=== PATIENT | female | born 1995 | race African-American/Black ===

== ENCOUNTER → 2017-01-19 | Outpatient (REF) | payer OTHER | LOC: M SFHCLERA 19:23 | PROVIDERS: ATTEND Nurse Practitioner Family | DX: J06.9 Acute upper respiratory infection, unspecified (principal) ==

== ENCOUNTER → 2017-03-08 | Outpatient (REF) | payer OTHER ==
[2017-03-08 14:10] LABS: BASO % 0.5 % (0.0-1.0); EOS # 0.1 K/mm3 (0.0-0.50); EOS % 1.9 % (0.0-3.0); LARGE UNSTAINED CELL # 0.1 K/mm3 (0.0-0.4); LARGE UNSTAINED CELL % 1.8 % (0.0-4.0); LYMPH % 39.4 % (24.0-44.0); MEAN CORPUSCULAR HGB CONC 30.7 g/dl (32.0-36.5); MEAN CORPUSCULAR VOLUME 74.9 fl (80.0-96.0); MONO # 0.3 K/mm3 (0.0-0.8); MONO % 6.1 % (0.0-5.0); NEUTROPHILS # 2.5 K/mm3 (1.8-7.7); NEUTROPHILS % 50.3 % (36.0-66.0); PLATELET COUNT, AUTOMATED 515 k/mm3 (150-450); RED CELL DISTRIBUTION WIDTH 16.9 % (11.5-14.5)
[2017-03-08 14:41] LABS: ALBUMIN 4.1 GM/DL (3.2-5.2); ALBUMIN/GLOBULIN RATIO 1.05 (1.00-1.93); ALKALINE PHOSPHATASE 77 U/L (45-117); ALT/SGPT 16 U/L (12-78); ANION GAP 4 MEQ/L (8-16); AST/SGOT 12 U/L (15-37); BILIRUBIN,TOTAL 0.3 MG/DL (0.2-1.0); BLOOD UREA NITROGEN 9 MG/DL (7-18); CALCIUM LEVEL 9.1 MG/DL (8.5-10.1); CARBON DIOXIDE LEVEL 31 MEQ/L (21-32); CHLORIDE LEVEL 105 MEQ/L (98-107); CREATININE FOR GFR 0.79 MG/DL (0.55-1.02); GLOMERULAR FILTRATION RATE > 60.0 (>60); GLUCOSE, FASTING 94 MG/DL (70-105); POTASSIUM SERUM 4.6 MEQ/L (3.5-5.1); SODIUM LEVEL 140 MEQ/L (136-145)
[2017-03-08 14:49] LABS: VITAMIN B12 LEVEL 599 PG/ML (247-911)
[2017-03-08 14:50] LABS: FOLATE > 24.0 NG/ML (>5.4)
== END ==
LOC: M LABNEURO 13:03
PROVIDERS: ATTEND Psychiatry & Neurology Neurology
DX: G40.909 Epilepsy, unspecified, not intractable, without status epilepticus (principal)

== ENCOUNTER → 2018-02-06 | Outpatient (CLI) | payer OTHER | LOC: M LRY 17:45 | DX: M25.561 Pain in right knee (principal) | CPT/HCPCS: G0463 ==

== ENCOUNTER → 2018-10-07 | Outpatient (REF) | payer OTHER, MEDICAID | LOC: M SFHCLERA 18:15 | DX: J02.9 Acute pharyngitis, unspecified (principal) ==

== ENCOUNTER → 2018-10-07 | Outpatient (CLI) | payer OTHER, MEDICAID | LOC: M LRY 18:37 | DX: R05 Cough (principal) | CPT/HCPCS: 71046 ==

== ENCOUNTER 2024-12-29 07:14 | Outpatient (CLI) | payer OTHER, MEDICAID ==
[~2024-12-29] VITALS: Ht 154.9 cm; Wt 63.0 kg
[~2024-12-29 07:14] MED LIST: ALBUTEROL SULFATE 2.5MG/0.5ML INH NEB SOLN INH PRN; EPINEPHrine INJ 1 MG/ML 1ML AMP IM PRN; diphenhydrAMINE 50MG/ML VIAL IV PRN; methylPREDNISolone 125MG 2ML VIAL IV PRN
[2024-12-29 07:20] VITALS: BP 124/73; O2SAT 100
[2024-12-29] MEDS: FERRIC CARBOXYMALTOSE 750 MG (VIAL MATE) IN 100ML NS IV ONE (07:35)
[2024-12-29] MEDS ORDERED: KEPP1TAB2 PO (07:43)
[2024-12-29 08:30] VITALS: BP 122/72; O2SAT 100
== END 2024-12-29 08:30 ==
LOC: M INFU 07:14
PROVIDERS: ATTEND Internal Medicine
DX: D50.9 Iron deficiency anemia, unspecified (principal)
CPT/HCPCS: 96365; J1439

== ENCOUNTER 2025-01-05 12:34 | Outpatient (CLI) | payer OTHER, MEDICAID ==
[~2025-01-05] VITALS: Ht 154.9 cm; Wt 63.2 kg
[~2025-01-05 12:34] MED LIST changes: +KEPP1TAB2 PO
[2025-01-05 12:40] VITALS: BP 128/81; O2SAT 100
[2025-01-05] MEDS: FERRIC CARBOXYMALTOSE 750 MG (VIAL MATE) IN 100ML NS IV ONE (12:51)
[2025-01-05 13:11] VITALS: BP 130/82; O2SAT 98
== END 2025-01-05 13:15 ==
LOC: M INFU 12:34
PROVIDERS: ATTEND Internal Medicine
DX: D50.8 Other iron deficiency anemias (principal)
CPT/HCPCS: 96365; J1439